=== PATIENT | female | born 1980 | race Caucasian/White ===

== ENCOUNTER 2020-01-24 14:32 | Emergency (ER) | payer OTHER ==
[~2020-01-24] VITALS: Ht 170.2 cm; Wt 103.0 kg
[2020-01-24 14:57] LABS: HEMATOCRIT 40.2 % (37.0-47.0); MCH 26.6 pg (26.0-34.0); MCHC 32.3 g/dL (28.0-37.0); MCV 82.3 fL (80.0-100.0); PLATELET COUNT 417 thou/uL (150-400); RBC 4.88 mil/uL (4.20-5.00); RDW 22.2 % (10.5-14.5); WBC 14.5 thou/uL (4.0-11.0)
[2020-01-24 15:15] LABS: CALCIUM 9.8 mg/dL (8.5-10.1); CREATININE 1.2 mg/dL (0.6-1.0)
[2020-01-24 15:19] LABS: ALBUMIN 3.9 g/dL (3.4-5.0); TOTAL BILIRUBIN 0.2 mg/dL (0.2-1.0); TOTAL PROTEIN 8.1 g/dL (6.4-8.2)
[2020-01-24] MEDS ORDERED: PREDNISONE 20 M20 M1 PO ×2 (15:45→18:23)
[2020-01-24] MEDS ORDERED: KEFLEX500 M1 PO (15:46)
[2020-01-24] MEDS ORDERED: LIALDA1.2 GM PO (15:46)
[2020-01-24] MEDS ORDERED: SPRINTEC1 EACH PO (15:46)
[2020-01-24] MEDS ORDERED: TOPROL XL50 MG PO (15:46)
[2020-01-24] MEDS ORDERED: HYDROCHLOROTHIA25 M2 PO (15:46)
[2020-01-24] MEDS ORDERED: REMICADE 1100 MG/VIA IV (15:48)
[2020-01-24 15:49] LABS: ABSOLUTE NEUTROPHILS 13.1 thou/uL (1.4-8.2); ANISOCYTOSIS 2+
[2020-01-24] MEDS ORDERED: BENTYL 20 MG TA20 M1 PO (18:23)
[2020-01-24 18:55] VITALS: BP 129/72
== END 2020-01-24 18:50 | disposition home or self-care (01) ==
LOC: ER 14:32
PROVIDERS: Emergency Medicine
DX: R10.84 Generalized abdominal pain (principal); I10 Essential (primary) hypertension; Z79.899 Other long term (current) drug therapy; Z88.2 Allergy status to sulfonamides